=== PATIENT | female | born 1960 | race Two or more races ===

== ENCOUNTER 2017-07-26 07:11 | Outpatient (CLI) | payer OTHER ==
[~2017-07-26 07:11] MED LIST: ANTIVERT25 M1 PO; ASPIR 8181 MG; KETO10TA2 PO; LIPITOR20 MG PO; MAXIMUM DAILY1 EACH; NEURONTIN600 MG; NORFLEX100MG; OMEGA 3 500 SO1 EACH; OSTERA TABLET1 EACH; TOPROL XL50 M1
== END 2017-07-26 07:21 | disposition home or self-care (01) ==
LOC: LAB 07:11
DX: I10 Essential (primary) hypertension (principal)

== ENCOUNTER 2017-08-30 16:35 | Emergency (ER) | payer OTHER ==
[~2017-08-30] VITALS: Ht 149.9 cm; Wt 90.7 kg
== END 2017-08-30 23:01 | disposition home or self-care (01) ==
LOC: ER 16:35
DX: M25.511 Pain in right shoulder (principal)

== ENCOUNTER → 2017-09-12 | Outpatient (CLI) | payer OTHER | END | disposition home or self-care (01) | LOC: PPHC 09:10 | DX: E11.9 Type 2 diabetes mellitus without complications (principal) ==

== ENCOUNTER → 2017-09-26 | Outpatient (CLI) | payer OTHER | END | disposition home or self-care (01) | LOC: NUCLEAR 11:00 | DX: I10 Essential (primary) hypertension (principal) ==

== ENCOUNTER 2017-12-30 09:16 | Outpatient (CLI) | payer OTHER ==
[~2017-12-30 09:16] MED LIST changes: +COZAAR50 MG; +METFORMIN HCL500 M3
== END 2017-12-30 09:23 | disposition home or self-care (01) ==
LOC: LAB 09:16
DX: I10 Essential (primary) hypertension (principal); E55.9 Vitamin D deficiency, unspecified; E11.9 Type 2 diabetes mellitus without complications

== ENCOUNTER 2018-02-27 09:28 | Emergency (ER) | payer OTHER ==
[~2018-02-27] VITALS: Ht 149.9 cm; Wt 83.9 kg
== END 2018-02-27 11:55 | disposition home or self-care (01) ==
LOC: ER 09:28
DX: R07.89 Other chest pain (principal); F06.4 Anxiety disorder due to known physiological condition

== ENCOUNTER 2018-04-28 13:21 | Outpatient (CLI) | payer OTHER | END 2018-04-28 13:26 | disposition home or self-care (01) | LOC: MAMO-SONO 13:21 | DX: Z12.31 Encounter for screening mammogram for malignant neoplasm of breast (principal); N60.11 Diffuse cystic mastopathy of right breast; N60.12 Diffuse cystic mastopathy of left breast ==

== ENCOUNTER → 2018-05-01 06:04 | Outpatient (CLI) | payer OTHER | END | disposition home or self-care (01) | LOC: LAB 06:04 | DX: I10 Essential (primary) hypertension (principal); E11.9 Type 2 diabetes mellitus without complications; E78.2 Mixed hyperlipidemia; E55.9 Vitamin D deficiency, unspecified ==

== ENCOUNTER 2018-06-05 06:02 | Outpatient (CLI) | payer OTHER | END 2018-06-05 10:38 | disposition home or self-care (01) | LOC: LAB 06:02 | DX: E11.65 Type 2 diabetes mellitus with hyperglycemia (principal) ==

== ENCOUNTER 2018-06-05 09:46 | Outpatient (CLI) | payer OTHER | END 2018-06-05 09:53 | disposition home or self-care (01) | LOC: MAMO-SONO 09:46 | DX: N60.11 Diffuse cystic mastopathy of right breast (principal); N60.12 Diffuse cystic mastopathy of left breast ==

== ENCOUNTER 2018-07-01 12:53 | Outpatient (CLI) | payer OTHER | END 2018-07-01 16:05 | disposition home or self-care (01) | LOC: RAD 12:53 | DX: M54.5 Low back pain (principal); M51.37 Other intervertebral disc degeneration, lumbosacral region ==

== ENCOUNTER 2018-10-14 06:18 | Outpatient (CLI) | payer OTHER | END 2018-10-14 06:24 | disposition home or self-care (01) | LOC: LAB 06:18 | DX: E55.9 Vitamin D deficiency, unspecified (principal); I10 Essential (primary) hypertension; E78.2 Mixed hyperlipidemia; E11.9 Type 2 diabetes mellitus without complications ==

== ENCOUNTER → 2018-10-14 | Outpatient (CLI) | payer OTHER ==
[~2018-10-14] MED LIST changes: +NORFLEX100MG PO
== END | disposition home or self-care (01) ==
LOC: MAMO-SONO 10:48 → SONOGRAMA 10:48 → MAMO-SONO 14:45
DX: M70.61 Trochanteric bursitis, right hip (principal)

== ENCOUNTER 2018-10-27 07:58 | Outpatient (CLI) | payer OTHER | END 2018-10-27 08:08 | disposition home or self-care (01) | LOC: MRI 07:58 | DX: M54.5 Low back pain (principal) | CPT/HCPCS: 72148 ==

== ENCOUNTER 2018-12-29 09:21 | Outpatient (CLI) | payer OTHER | END 2018-12-29 13:44 | disposition home or self-care (01) | LOC: LAB 09:21 | DX: J11.1 Influenza due to unidentified influenza virus with other respiratory manifestations (principal) ==

== ENCOUNTER → 2019-01-12 07:40 | Outpatient (CLI) | payer OTHER | END | disposition home or self-care (01) | LOC: LAB 07:40 | DX: E11.65 Type 2 diabetes mellitus with hyperglycemia (principal) ==

== ENCOUNTER 2019-05-15 07:38 | Outpatient (CLI) | payer OTHER | END 2019-05-15 07:40 | disposition home or self-care (01) | LOC: LAB 07:38 | DX: E78.00 Pure hypercholesterolemia, unspecified (principal); E11.65 Type 2 diabetes mellitus with hyperglycemia ==

== ENCOUNTER 2019-09-22 06:36 | Outpatient (CLI) | payer OTHER | END 2019-09-22 06:42 | disposition home or self-care (01) | LOC: LAB 06:36 | DX: E11.65 Type 2 diabetes mellitus with hyperglycemia (principal); E78.00 Pure hypercholesterolemia, unspecified ==

== ENCOUNTER 2019-10-18 09:34 | Outpatient (CLI) | payer OTHER | END 2019-10-18 09:39 | disposition home or self-care (01) | LOC: LAB 09:34 | DX: J11.1 Influenza due to unidentified influenza virus with other respiratory manifestations (principal); R05 Cough ==

== ENCOUNTER 2020-02-19 08:16 | Emergency (ER) | payer OTHER ==
[~2020-02-19] VITALS: Ht 149.9 cm; Wt 77.1 kg
== END 2020-02-19 09:44 | disposition home or self-care (01) ==
LOC: ER 08:16
DX: S13.4XXA Sprain of ligaments of cervical spine, initial encounter (principal); X50.3XXA Overexertion from repetitive movements, initial encounter; Y93.89 Activity, other specified; Y92.89 Other specified places as the place of occurrence of the external cause; Y99.8 Other external cause status

== ENCOUNTER → 2020-03-10 | Outpatient (CLI) | payer OTHER ==
[~2020-03-10] MED LIST changes: +CYCLOBENZAPRINE10 MG PO
== END | disposition home or self-care (01) ==
LOC: MRI 09:37
PROVIDERS: ATTEND Orthopaedic Surgery
DX: M25.561 Pain in right knee (principal)
CPT/HCPCS: 73721

== ENCOUNTER 2020-03-14 13:14 | Outpatient (CLI) | payer OTHER ==
[~2020-03-14 13:14] MED LIST changes: -CYCLOBENZAPRINE10 MG PO
== END 2020-03-14 13:38 | disposition home or self-care (01) ==
LOC: NUCLEAR 13:14
PROVIDERS: ATTEND Orthopaedic Surgery
DX: M25.461 Effusion, right knee (principal); M25.462 Effusion, left knee

== ENCOUNTER 2020-04-06 10:16 | Emergency (ER) | payer OTHER ==
[~2020-04-06] VITALS: Ht 149.9 cm; Wt 79.4 kg
[2020-04-06] MEDS ORDERED: CYCLOBENZAPRINE10 MG PO (13:13)
[2020-04-06] MEDS ORDERED: KETO10TA2 PO (13:13)
== END 2020-04-06 13:39 | disposition home or self-care (01) ==
LOC: ER 10:16
DX: S80.212A Abrasion, left knee, initial encounter (principal); W01.198A Fall on same level from slipping, tripping and stumbling with subsequent striking against other object, initial encounter; Y93.89 Activity, other specified; Y92.233 Cafeteria of hospital as the place of occurrence of the external cause; Y99.8 Other external cause status

== ENCOUNTER 2020-04-11 13:00 | Outpatient (CLI) | payer OTHER ==
[~2020-04-11 13:00] MED LIST changes: +CYCLOBENZAPRINE10 MG PO
== END 2020-04-11 15:00 | disposition home or self-care (01) ==
LOC: PPH VACUNA 13:00
DX: Z23 Encounter for immunization (principal)

== ENCOUNTER 2020-05-09 14:10 | Outpatient (CLI) | payer OTHER | END 2020-05-09 14:58 | disposition home or self-care (01) | LOC: TOM 14:10 | PROVIDERS: ATTEND Anesthesiology | DX: G44.89 Other headache syndrome (principal) ==

== ENCOUNTER 2020-05-12 15:09 | Outpatient (CLI) | payer OTHER | END 2020-05-12 15:18 | disposition home or self-care (01) | LOC: MAMO-SONO 15:09 | PROVIDERS: ATTEND Surgery | DX: Z12.31 Encounter for screening mammogram for malignant neoplasm of breast (principal); N60.11 Diffuse cystic mastopathy of right breast; N60.12 Diffuse cystic mastopathy of left breast ==

== ENCOUNTER → 2020-06-17 07:20 | Outpatient (CLI) | payer OTHER | END | disposition home or self-care (01) | LOC: LAB 07:20 | PROVIDERS: ATTEND Obstetrics & Gynecology Gynecology | DX: E03.8 Other specified hypothyroidism (principal); M81.0 Age-related osteoporosis without current pathological fracture; E78.49 Other hyperlipidemia; N39.0 Urinary tract infection, site not specified; E11.9 Type 2 diabetes mellitus without complications ==

== ENCOUNTER → 2020-07-05 | Outpatient (CLI) | payer OTHER | END | disposition home or self-care (01) | LOC: OFIC 805 12:00 | PROVIDERS: ATTEND Otolaryngology | DX: G44.89 Other headache syndrome (principal); R42 Dizziness and giddiness ==

== ENCOUNTER → 2020-07-11 08:49 | Outpatient (CLI) | payer OTHER | END | disposition home or self-care (01) | LOC: LAB 07-07 06:11 | DX: R73.09 Other abnormal glucose (principal); E55.9 Vitamin D deficiency, unspecified; E03.8 Other specified hypothyroidism; E78.49 Other hyperlipidemia; M54.5 Low back pain ==

== ENCOUNTER → 2020-07-20 | Outpatient (CLI) | payer OTHER | END | disposition home or self-care (01) | LOC: NUCLEAR 08:52 | PROVIDERS: ATTEND Obstetrics & Gynecology Gynecology | DX: M81.0 Age-related osteoporosis without current pathological fracture (principal) ==

== ENCOUNTER 2020-08-05 08:56 | Outpatient (CLI) | payer OTHER | END 2020-08-05 09:20 | disposition home or self-care (01) | LOC: LAB 08:56 | DX: M06.4 Inflammatory polyarthropathy (principal); M32.8 Other forms of systemic lupus erythematosus; H04.123 Dry eye syndrome of bilateral lacrimal glands; M25.50 Pain in unspecified joint; R76.8 Other specified abnormal immunological findings in serum; M34.89 Other systemic sclerosis ==

== ENCOUNTER 2020-08-11 09:13 | Outpatient (CLI) | payer OTHER | END 2020-08-11 09:28 | disposition home or self-care (01) | LOC: RAD 09:13 | DX: M79.641 Pain in right hand (principal); M79.642 Pain in left hand; M25.531 Pain in right wrist; M25.532 Pain in left wrist ==

== ENCOUNTER 2020-08-23 13:16 | Outpatient (CLI) | payer OTHER | END 2020-08-23 13:21 | disposition home or self-care (01) | LOC: LAB 13:16 | PROVIDERS: ATTEND General Practice | DX: R05 Cough (principal); Z11.3 Encounter for screening for infections with a predominantly sexual mode of transmission ==

== ENCOUNTER → 2020-12-06 06:15 | Outpatient (CLI) | payer OTHER | END | disposition home or self-care (01) | LOC: LAB 06:15 | PROVIDERS: ATTEND Neuromusculoskeletal Medicine & OMM | DX: R41.89 Other symptoms and signs involving cognitive functions and awareness (principal); R41.3 Other amnesia; E03.8 Other specified hypothyroidism; F03.90 Unspecified dementia, unspecified severity, without behavioral disturbance, psychotic disturbance, mood disturbance, and anxiety; R42 Dizziness and giddiness ==

== ENCOUNTER → 2020-12-14 | Outpatient (CLI) | payer OTHER | END | disposition home or self-care (01) | LOC: MRI 11:13 | PROVIDERS: ATTEND Neuromusculoskeletal Medicine & OMM | DX: R42 Dizziness and giddiness (principal); M50.20 Other cervical disc displacement, unspecified cervical region; M50.30 Other cervical disc degeneration, unspecified cervical region; H93.3X9 Disorders of unspecified acoustic nerve | CPT/HCPCS: 70543; 70553; 72141 ==

== ENCOUNTER → 2021-02-22 | Outpatient (CLI) | payer OTHER ==
[~2021-02-22] MED LIST changes: +NEURONTIN300 MG; +TOBRADEX ST EYE5 ML OP; +ZITHROMAX500 MG PO
== END | disposition home or self-care (01) ==
LOC: LAB 11:37
PROVIDERS: ATTEND Emergency Medicine Pediatric Emergency Medicine
DX: Z03.818 Encounter for observation for suspected exposure to other biological agents ruled out (principal)

== ENCOUNTER 2021-03-30 11:22 | Outpatient (CLI) | payer OTHER | END 2021-03-30 16:11 | disposition home or self-care (01) | LOC: MRI 11:22 | PROVIDERS: ATTEND Neuromusculoskeletal Medicine & OMM | DX: R42 Dizziness and giddiness (principal) | CPT/HCPCS: 72148 ==

== ENCOUNTER 2021-04-24 09:41 | Outpatient (CLI) | payer OTHER | END 2021-04-24 10:41 | disposition home or self-care (01) | LOC: PPH VACUNA 09:41 | PROVIDERS: ATTEND Emergency Medicine Pediatric Emergency Medicine | DX: Z23 Encounter for immunization (principal) ==

== ENCOUNTER 2021-05-12 07:09 | Outpatient (CLI) | payer OTHER | END 2021-05-12 07:10 | disposition home or self-care (01) | LOC: LAB 07:09 | PROVIDERS: ATTEND Internal Medicine Endocrinology, Diabetes & Metabolism | DX: E78.00 Pure hypercholesterolemia, unspecified (principal); E11.65 Type 2 diabetes mellitus with hyperglycemia ==

== ENCOUNTER 2021-09-01 08:04 | Outpatient (CLI) | payer OTHER | END 2021-09-01 08:09 | disposition home or self-care (01) | LOC: LAB 08:04 | PROVIDERS: ATTEND Internal Medicine Endocrinology, Diabetes & Metabolism | DX: E11.638 Type 2 diabetes mellitus with other oral complications (principal); E78.00 Pure hypercholesterolemia, unspecified ==

== ENCOUNTER 2021-10-12 14:08 | Outpatient (CLI) | payer OTHER | END 2021-10-12 14:14 | disposition home or self-care (01) | LOC: MAMO-SONO 14:08 | PROVIDERS: ATTEND Surgery | DX: N60.11 Diffuse cystic mastopathy of right breast (principal); N60.12 Diffuse cystic mastopathy of left breast ==

== ENCOUNTER 2022-01-01 09:40 | Outpatient (CLI) | payer OTHER | END 2022-01-01 09:50 | disposition home or self-care (01) | LOC: PPH VACUNA 09:40 | PROVIDERS: ATTEND Emergency Medicine Pediatric Emergency Medicine | DX: Z23 Encounter for immunization (principal) ==

== ENCOUNTER 2022-03-09 07:31 | Outpatient (CLI) | payer OTHER | END 2022-03-09 07:36 | disposition home or self-care (01) | LOC: LAB 07:31 | PROVIDERS: ATTEND Internal Medicine Endocrinology, Diabetes & Metabolism | DX: E78.00 Pure hypercholesterolemia, unspecified (principal); E11.65 Type 2 diabetes mellitus with hyperglycemia ==

== ENCOUNTER 2022-04-02 08:00 | Outpatient (CLI) | payer OTHER | END 2022-04-02 08:05 | disposition home or self-care (01) | LOC: PPH VACUNA 08:00 | PROVIDERS: ATTEND Emergency Medicine Pediatric Emergency Medicine | DX: Z23 Encounter for immunization (principal) ==

== ENCOUNTER 2022-06-11 08:25 | Outpatient (CLI) | payer OTHER | END 2022-06-11 08:26 | disposition home or self-care (01) | LOC: LAB 08:25 | PROVIDERS: ATTEND Obstetrics & Gynecology Gynecology | DX: N39.0 Urinary tract infection, site not specified (principal) ==

== ENCOUNTER 2022-06-14 13:48 | Outpatient (CLI) | payer OTHER | END 2022-06-14 13:59 | disposition home or self-care (01) | LOC: SONOGRAMA 13:48 | PROVIDERS: ATTEND Obstetrics & Gynecology Gynecology | DX: R10.2 Pelvic and perineal pain (principal) ==

== ENCOUNTER 2022-06-24 07:48 | Outpatient (CLI) | payer OTHER | END 2022-06-24 07:49 | disposition home or self-care (01) | LOC: LAB 07:48 | PROVIDERS: ATTEND Internal Medicine Rheumatology | DX: E55.9 Vitamin D deficiency, unspecified (principal); M79.7 Fibromyalgia ==

== ENCOUNTER 2022-07-23 06:24 | Emergency (ER) | payer OTHER ==
[~2022-07-23] VITALS: Ht 121.9 cm; Wt 73.0 kg
[2022-07-23] MEDS ORDERED: KETO10TA2 PO (10:09)
== END 2022-07-23 09:33 | disposition home or self-care (01) ==
LOC: ER 06:24
DX: M79.645 Pain in left finger(s) (principal)

== ENCOUNTER 2022-08-20 10:19 | Outpatient (CLI) | payer OTHER | END 2022-08-20 10:20 | disposition home or self-care (01) | LOC: LAB 10:19 | PROVIDERS: ATTEND Anesthesiology | DX: Z20.822 Contact with and (suspected) exposure to COVID-19 (principal) ==

== ENCOUNTER 2022-09-06 07:38 | Outpatient (CLI) | payer OTHER | END 2022-09-06 15:39 | disposition home or self-care (01) | LOC: LAB 07:38 | PROVIDERS: ATTEND Internal Medicine Endocrinology, Diabetes & Metabolism | DX: E11.65 Type 2 diabetes mellitus with hyperglycemia (principal); E78.00 Pure hypercholesterolemia, unspecified ==

== ENCOUNTER 2022-12-25 09:04 | Outpatient (CLI) | payer OTHER | END 2022-12-25 14:02 | disposition home or self-care (01) | LOC: EKG 09:04 | PROVIDERS: ATTEND Orthopaedic Surgery Sports Medicine | DX: Z01.818 Encounter for other preprocedural examination (principal); I10 Essential (primary) hypertension ==

== ENCOUNTER → 2022-12-26 07:14 | Outpatient (CLI) | payer OTHER | END | disposition home or self-care (01) | LOC: LAB 07:14 | PROVIDERS: ATTEND Orthopaedic Surgery Sports Medicine | DX: D68.9 Coagulation defect, unspecified (principal) ==

== ENCOUNTER 2022-12-30 07:56 | Outpatient (CLI) | payer OTHER | END 2022-12-30 07:59 | disposition home or self-care (01) | LOC: LAB 07:56 | PROVIDERS: ATTEND Orthopaedic Surgery Sports Medicine | DX: Z20.822 Contact with and (suspected) exposure to COVID-19 (principal) ==

== ENCOUNTER 2023-01-11 08:16 | Outpatient (CLI) | payer OTHER | END 2023-01-11 08:17 | disposition home or self-care (01) | LOC: LAB 08:16 | PROVIDERS: ATTEND Specialist | DX: N25.81 Secondary hyperparathyroidism of renal origin (principal); E11.69 Type 2 diabetes mellitus with other specified complication; N39.9 Disorder of urinary system, unspecified; D64.89 Other specified anemias; Z13.220 Encounter for screening for lipoid disorders; E03.8 Other specified hypothyroidism; E11.21 Type 2 diabetes mellitus with diabetic nephropathy; G90.4 Autonomic dysreflexia ==

== ENCOUNTER 2023-04-17 10:42 | Outpatient (CLI) | payer OTHER | END 2023-04-17 10:47 | disposition home or self-care (01) | LOC: NUCLEAR 10:42 | PROVIDERS: ATTEND Internal Medicine Cardiovascular Disease | DX: I20.1 Angina pectoris with documented spasm (principal) ==

== ENCOUNTER → 2023-05-01 | Outpatient (CLI) | payer OTHER | END | disposition home or self-care (01) | LOC: RAD 10:16 | PROVIDERS: ATTEND Orthopaedic Surgery | DX: S83.201A Bucket-handle tear of unspecified meniscus, current injury, left knee, initial encounter (principal); M25.561 Pain in right knee; M25.562 Pain in left knee | CPT/HCPCS: 73718 ==

== ENCOUNTER → 2023-05-28 06:25 | Outpatient (CLI) | payer OTHER ==
[2023-05-28 07:18] LABS: PH,URINE 5.5 (5.0-8.0); URINE APPEARANCE Clear; URINE BILIRRUBIN Negative (NEGATIVE); URINE BLOOD Small; URINE COLOR Yellow; URINE GLUCOSE Negative (NEGATIVE); URINE LEUKOCYTE Trace; URINE NITRATE Negative; URINE PROTEIN Negative (NEGATIVE); URINE UROBILINOGEN 0.2 E.U./dl
[2023-05-28 07:19] LABS: URINE BACTERIA 1220.7 uL (0.0-1933); URINE RBC 29.4 uL (0.0-20.8); URINE WBC 26.5 uL (0.0-23.2)
[2023-05-28 07:19] LABS: HEMATOCRIT 38.3 % (36.0-45.00); HEMOGLOBIN 12.4 g/dL (12.0-15.00); MEAN CELL VOLUME 92.3 fL (80.00-100.00); MEAN CORPUSCULAR HEMOGLOBIN 29.8 pg (27.00-32.0); MEAN CORPUSCULAR HGB CONC 32.3 g/dl (32.0-36.0); PLATELET COUNT 329 K/uL (150-450); RED BLOOD COUNT 4.15 M/uL (4.00-6.00); RED CELL DISTRIBUTION WIDTH 13.6 % (11.5-14.5)
[2023-05-28 08:12] LABS: ALBUMIN 3.7 gm/dL (3.4-5.0); BILIRUBIN TOTAL 0.4 mg/dL (0.3-1.2); CALCIUM 9.8 mg/dL (8.5-10.1); CHOL HDL RATIO 2.2 (0-5.0); CREATININE SERUM 0.79 mg/dL (0.55-1.02); GFR 73.5; GLOBULINA 3.9 G/DL (2.4-3.5); POTASSIUM 4.12 mEq/L (3.5-5.1); TOTAL PROTEIN 7.6 gm/dL (6.4-8.2)
== END | disposition home or self-care (01) ==
LOC: LAB 06:25
PROVIDERS: ATTEND Internal Medicine Endocrinology, Diabetes & Metabolism
DX: E11.8 Type 2 diabetes mellitus with unspecified complications (principal)

== ENCOUNTER 2023-07-05 07:43 | Outpatient (CLI) | payer OTHER ==
[2023-07-05 08:12] LABS: PH,URINE 5.5 (5.0-8.0); URINE APPEARANCE Clear; URINE BILIRRUBIN Negative (NEGATIVE); URINE BLOOD Small; URINE COLOR Yellow; URINE GLUCOSE Negative (NEGATIVE); URINE LEUKOCYTE Small; URINE NITRATE Negative; URINE PROTEIN Negative (NEGATIVE); URINE UROBILINOGEN 0.2 E.U./dl
[2023-07-05 08:19] LABS: URINE BACTERIA 1931.5 uL (0.0-1933); URINE EPITHELIAL CELLS 31.6 uL (0.0-38.8); URINE RBC 30.4 uL (0.0-20.8); URINE WBC 98.3 uL (0.0-23.2)
[2023-07-05 09:08] LABS: ALBUMIN 4.1 gm/dL (3.4-5.0); BILIRUBIN TOTAL 0.39 mg/dL (0.3-1.2); CALCIUM 10.4 mg/dL (8.5-10.1); CHOL HDL RATIO 1.9 (0-5.0); CREATININE SERUM 0.98 mg/dL (0.55-1.02); GFR 57.32; GLOBULINA 4.4 G/DL (2.4-3.5); POTASSIUM 4.23 mEq/L (3.5-5.1); TOTAL PROTEIN 8.5 gm/dL (6.4-8.2)
== END 2023-07-05 07:44 | disposition home or self-care (01) ==
LOC: LAB 07:43
PROVIDERS: ATTEND Internal Medicine Endocrinology, Diabetes & Metabolism
DX: E78.00 Pure hypercholesterolemia, unspecified (principal); E11.65 Type 2 diabetes mellitus with hyperglycemia

== ENCOUNTER 2023-08-20 06:57 | Outpatient (CLI) | payer OTHER ==
[2023-08-20 08:00] LABS: PH,URINE 5.5 (5.0-8.0); URINE APPEARANCE Cloudy; URINE BILIRRUBIN Negative (NEGATIVE); URINE BLOOD Small; URINE COLOR Yellow; URINE GLUCOSE Negative (NEGATIVE); URINE LEUKOCYTE Moderate; URINE NITRATE Negative; URINE PROTEIN Negative (NEGATIVE); URINE UROBILINOGEN 0.2 E.U./dl
[2023-08-20 08:01] LABS: URINE EPITHELIAL CELLS 59.5 uL (0.0-38.8); URINE WBC 326.2 uL (0.0-23.2)
[2023-08-20 08:06] LABS: HEMATOCRIT 39.5 % (36.0-45.00); HEMOGLOBIN 13.3 g/dL (12.0-15.00); MEAN CELL VOLUME 91.8 fL (80.00-100.00); MEAN CORPUSCULAR HEMOGLOBIN 30.9 pg (27.00-32.0); MEAN CORPUSCULAR HGB CONC 33.6 g/dl (32.0-36.0); PLATELET COUNT 279 K/uL (150-450); RED CELL DISTRIBUTION WIDTH 13.7 % (11.5-14.5)
[2023-08-20 08:46] LABS: ALBUMIN 3.9 gm/dL (3.4-5.0); ALKALINE PHOSPHATASE 75 U/L (50-136); ALT/SGPT 36 U/L (12-78); ANION GAP 8 (10.0-20.0); AST/SGOT 16 U/L (15-37); BILIRUBIN TOTAL 0.52 mg/dL (0.3-1.2); BLOOD UREA NITROGEN 22 mg/dL (7-18); BUN CREA RATIO 25 (7.0-25.0); CALCIUM 9.8 mg/dL (8.5-10.1); CARBON DIOXIDE 29 mEq/L (21-32); CHLORIDE 106 mmol/L (98-107); CHOL HDL RATIO 2.1 (0-5.0); CHOLESTEROL 142 mg/dL (0-200); CREATININE SERUM 0.89 mg/dL (0.55-1.02); FREE TRIODOTIRONINE 1.96 pg/ml (2.18-3.98); GFR 64.06; GLOBULINA 3.8 G/DL (2.4-3.5); GLUCOSE FASTING 112 mg/dL (65-100); HDL 69 mg/dl (40-60); LDL 54 mg/dl (0-130); OSMOLALITY SERUM 282 MOSM/KG (275-295); POTASSIUM 4.18 mEq/L (3.5-5.1); SODIUM 139 mmol/L (136-145); TOTAL PROTEIN 7.7 gm/dL (6.4-8.2); TRIGLYCERIDES 94 mg/dL (0-150); VLDL 18 (0-39)
[2023-08-20 08:53] LABS: URINE BACTERIA > 9821.5 uL (0.0-1933)
[2023-08-20 09:01] LABS: C-REACTIVE PROTEIN < 0.29 MG/DL (0.00-0.29)
== END 2023-08-20 06:58 | disposition home or self-care (01) ==
LOC: LAB 06:57
PROVIDERS: ATTEND Specialist
DX: N39.0 Urinary tract infection, site not specified (principal); E03.8 Other specified hypothyroidism; D64.89 Other specified anemias; R07.9 Chest pain, unspecified; E11.21 Type 2 diabetes mellitus with diabetic nephropathy; N39.9 Disorder of urinary system, unspecified; E11.69 Type 2 diabetes mellitus with other specified complication; N25.81 Secondary hyperparathyroidism of renal origin; E55.9 Vitamin D deficiency, unspecified; Z13.220 Encounter for screening for lipoid disorders

== ENCOUNTER 2023-08-20 07:21 | Outpatient (CLI) | payer OTHER | END 2023-08-20 07:28 | disposition home or self-care (01) | LOC: SONOGRAMA 07:21 | PROVIDERS: ATTEND Specialist | DX: J45.998 Other asthma (principal); E03.9 Hypothyroidism, unspecified ==

== ENCOUNTER 2023-10-29 06:26 | Outpatient (CLI) | payer OTHER ==
[2023-10-29 07:34] LABS: PH,URINE 5.5 (5.0-8.0); URINE APPEARANCE Clear; URINE BILIRRUBIN Negative (NEGATIVE); URINE BLOOD Small; URINE COLOR Yellow; URINE GLUCOSE Negative (NEGATIVE); URINE LEUKOCYTE Negative; URINE NITRATE Negative; URINE PROTEIN Negative (NEGATIVE); URINE UROBILINOGEN 0.2 E.U./dl
[2023-10-29 07:37] LABS: URINE BACTERIA 914.6 uL (0.0-1933); URINE EPITHELIAL CELLS 25.9 uL (0.0-38.8); URINE RBC 10.7 uL (0.0-20.8); URINE WBC 5.4 uL (0.0-23.2)
[2023-10-29 07:58] LABS: HEMATOCRIT 40.1 % (36.0-45.00); HEMOGLOBIN 13.3 g/dL (12.0-15.00); MEAN CORPUSCULAR HEMOGLOBIN 29.8 pg (27.00-32.0); MEAN CORPUSCULAR HGB CONC 33.2 g/dl (32.0-36.0); PLATELET COUNT 284 K/uL (150-450); RED BLOOD COUNT 4.45 M/uL (4.00-6.00); RED CELL DISTRIBUTION WIDTH 14.3 % (11.5-14.5)
[2023-10-29 08:50] LABS: ALBUMIN 3.9 gm/dL (3.4-5.0); BILIRUBIN TOTAL 0.44 mg/dL (0.3-1.2); CALCIUM 10.3 mg/dL (8.5-10.1); CREATININE SERUM 0.89 mg/dL (0.55-1.02); GFR 63.85; POTASSIUM 4.26 mEq/L (3.5-5.1); TOTAL PROTEIN 7.9 gm/dL (6.4-8.2)
== END 2023-10-29 06:28 | disposition home or self-care (01) ==
LOC: LAB 06:26
PROVIDERS: ATTEND Internal Medicine Rheumatology
DX: M79.7 Fibromyalgia (principal); Z79.1 Long term (current) use of non-steroidal anti-inflammatories (NSAID); E55.9 Vitamin D deficiency, unspecified; M51.9 Unspecified thoracic, thoracolumbar and lumbosacral intervertebral disc disorder

== ENCOUNTER 2024-02-04 13:13 | Outpatient (CLI) | payer OTHER | END 2024-02-04 13:15 | disposition home or self-care (01) | LOC: RAD 13:13 | PROVIDERS: ATTEND Orthopaedic Surgery Sports Medicine | DX: M17.11 Unilateral primary osteoarthritis, right knee (principal); M17.12 Unilateral primary osteoarthritis, left knee ==

== ENCOUNTER 2024-02-28 08:21 | Outpatient (CLI) | payer OTHER ==
[2024-02-28 10:04] LABS: HEMATOCRIT 39.3 % (36.0-45.00); HEMOGLOBIN 13.1 g/dL (12.0-15.00); MEAN CELL VOLUME 89.5 fL (80.00-100.00); MEAN CORPUSCULAR HEMOGLOBIN 29.8 pg (27.00-32.0); MEAN CORPUSCULAR HGB CONC 33.3 g/dl (32.0-36.0); PLATELET COUNT 291 K/uL (150-450); RED BLOOD COUNT 4.39 M/uL (4.00-6.00); RED CELL DISTRIBUTION WIDTH 14.1 % (11.5-14.5)
[2024-02-28 10:11] LABS: CALCIUM 9.7 mg/dL (8.5-10.1); CHOL HDL RATIO 2.3 (0-5.0); CREATININE SERUM 0.74 mg/dL (0.55-1.02); GFR 79.01; POTASSIUM 4.05 mEq/L (3.5-5.1)
== END 2024-02-28 08:22 | disposition home or self-care (01) ==
LOC: LAB 08:21
PROVIDERS: ATTEND Specialist
DX: E78.2 Mixed hyperlipidemia (principal); D64.9 Anemia, unspecified; N39.0 Urinary tract infection, site not specified; E11.21 Type 2 diabetes mellitus with diabetic nephropathy

== ENCOUNTER 2024-04-16 06:11 | Outpatient (CLI) | payer OTHER ==
[2024-04-16 07:17] LABS: URINE BACTERIA 2203.7 uL (0.0-1933); URINE CAST 3.05 uL (0.0-1.40); URINE EPITHELIAL CELLS 87.7 uL (0.0-38.8); URINE RBC 44.2 uL (0.0-20.8); URINE WBC 36.1 uL (0.0-23.2)
[2024-04-16 07:28] LABS: PH,URINE 5.5 (5.0-8.0); URINE APPEARANCE Clear; URINE BILIRRUBIN Small (NEGATIVE); URINE BLOOD Negative; URINE COLOR Dark Yellow; URINE GLUCOSE Negative (NEGATIVE); URINE KETONE Trace (NEGATIVE); URINE LEUKOCYTE Small; URINE NITRATE Negative; URINE PROTEIN Trace (NEGATIVE)
[2024-04-16 07:35] LABS: URINE MUCUS HEAVY; URINE YEAST FEW /hpf
[2024-04-16 07:38] LABS: ALBUMIN 4.1 gm/dL (3.4-5.0); BILIRUBIN TOTAL 0.54 mg/dL (0.3-1.2); CALCIUM 9.5 mg/dL (8.5-10.1); CHOL HDL RATIO 2.3 (0-5.0); CREATININE SERUM 0.87 mg/dL (0.55-1.02); GFR 65.55; GLOBULINA 3.8 G/DL (2.4-3.5); POTASSIUM 3.96 mEq/L (3.5-5.1); TOTAL PROTEIN 7.9 gm/dL (6.4-8.2)
== END 2024-04-16 06:12 | disposition home or self-care (01) ==
LOC: LAB 06:11
PROVIDERS: ATTEND Internal Medicine Endocrinology, Diabetes & Metabolism
DX: E78.5 Hyperlipidemia, unspecified (principal); E11.65 Type 2 diabetes mellitus with hyperglycemia

== ENCOUNTER 2024-04-23 12:47 | Outpatient (CLI) | payer OTHER | END 2024-04-23 12:50 | disposition home or self-care (01) | LOC: NUCLEAR 12:47 | PROVIDERS: ATTEND Specialist | DX: M81.0 Age-related osteoporosis without current pathological fracture (principal); Z13.820 Encounter for screening for osteoporosis ==